=== PATIENT | female | born 1990 ===

== ENCOUNTER 2018-06-27 12:14 | Inpatient (IN) | payer OTHER ==
[~2018-06-27] VITALS: Ht 172.7 cm; Wt 92.5 kg
[2018-06-27] MEDS ORDERED: PRENATAL TABLE1 EAC3 PO (12:44)
== END 2018-06-29 10:47 | disposition home or self-care (01) | DRG 807 ==
LOC: LDR 12:14 → OB/GYN 12:14
PROVIDERS: ADMIT Obstetrics & Gynecology
PROC: 10E0XZZ Delivery of Products of Conception, External Approach (ICD-10-PCS; principal; 2018-06-27)
PROC: 4A1HXCZ Monitoring of Products of Conception, Cardiac Rate, External Approach (ICD-10-PCS; 2018-06-27)
PROC: 0HQ9XZZ Repair Perineum Skin, External Approach (ICD-10-PCS; 2018-06-27)
DX: O70.0 First degree perineal laceration during delivery (principal); Z37.0 Single live birth; Z3A.38 38 weeks gestation of pregnancy

== ENCOUNTER 2023-03-22 09:15 | Inpatient (IN) | payer OTHER ==
[~2023-03-22] VITALS: Ht 172.7 cm; Wt 87.1 kg
[~2023-03-22 09:15] MED LIST: PRENATAL TABLE1 EAC3 PO
[2023-03-22 10:59] LABS: HEMATOCRIT 38.4 % (36.0-45.00); HEMOGLOBIN 13.4 g/dL (12.0-15.00); MEAN CELL VOLUME 85.5 fL (80.00-100.00); MEAN CORPUSCULAR HEMOGLOBIN 29.9 pg (27.00-32.0); MEAN CORPUSCULAR HGB CONC 34.9 g/dl (32.0-36.0); PLATELET COUNT 188 K/uL (150-450); RED BLOOD COUNT 4.48 M/uL (4.00-6.00); RED CELL DISTRIBUTION WIDTH 13.6 % (11.5-14.5)
[2023-03-22 11:02] LABS: PH,URINE 6.5 (5.0-8.0); URINE APPEARANCE Clear; URINE BILIRRUBIN Negative (NEGATIVE); URINE BLOOD Negative; URINE COLOR Yellow; URINE GLUCOSE Negative (NEGATIVE); URINE LEUKOCYTE Moderate; URINE NITRATE Negative; URINE PROTEIN Negative (NEGATIVE); URINE UROBILINOGEN 0.2 E.U./dl
[2023-03-22 11:03] LABS: URINE BACTERIA 686.5 uL (0.0-1933); URINE EPITHELIAL CELLS 13.9 uL (0.0-38.8); URINE RBC 19.5 uL (0.0-20.8); URINE WBC 51.1 uL (0.0-23.2)
[2023-03-22 11:29] LABS: INR 1.04; PARTIAL THROMBOPLASTIN TIME 29.1 SECONDS (22.0-34.0); PROTHROMBIN TIME 10.9 SECONDS (9.0-11.5)
[2023-03-22 11:40] LABS: ALBUMIN 3.8 gm/dL (3.4-5.0); BILIRUBIN TOTAL 0.69 mg/dL (0.3-1.2); CALCIUM 8.9 mg/dL (8.5-10.1); CREATININE SERUM 0.69 mg/dL (0.55-1.02); GFR 99.9; GLOBULINA 3.8 G/DL (2.4-3.5); POTASSIUM 3.54 mEq/L (3.5-5.1); TOTAL PROTEIN 7.6 gm/dL (6.4-8.2)
[2023-03-28 20:17] LABS: HEMATOCRIT 34.3 % (36.0-45.00); MEAN CELL VOLUME 85.5 fL (80.00-100.00); MEAN CORPUSCULAR HGB CONC 35.1 g/dl (32.0-36.0); PLATELET COUNT 178 K/uL (150-450); RED BLOOD COUNT 4.01 M/uL (4.00-6.00); RED CELL DISTRIBUTION WIDTH 13.3 % (11.5-14.5)
[2023-03-29] MEDS ORDERED: POLY119PG PO (07:00)
[2023-03-29] MEDS ORDERED: IBUPROFEN800 MG PO (07:00)
== END 2023-03-29 09:13 | disposition home or self-care (01) | DRG 743 ==
LOC: O/R 03-28 05:20 → OB/GYN 03-28 05:20
PROVIDERS: ADMIT Obstetrics & Gynecology; ATTEND Obstetrics & Gynecology
PROC: 0UB10ZZ Excision of Left Ovary, Open Approach (ICD-10-PCS; principal; 2023-03-28 07:00)
DX: D27.1 Benign neoplasm of left ovary (principal); Z20.822 Contact with and (suspected) exposure to COVID-19